=== PATIENT | female | born 1960 | race Caucasian/White ===

== ENCOUNTER → 2018-04-22 15:24 | Outpatient (CLI) | payer SELFPAY ==
--- NOTE | 2018-04-22 10:45 | ETH_PTH ---
PATIENT: CHAITANYA PANDYA LOC: [facility] U#:[id number] AGE/SX: 64/F ROOM: RE04/22/[address]: Dr. Dilshad Lubin MD : [id number] BED: DIS: SPEC #: [id number] RECD: 04/22/18 14:00 STATUS: ERAN CORNELL #: [id number] HEATHER: 04/22/18 10:[address]: Dilshad Lubin DEPT: SURGICAL PATHOLOGY RECD BY: Abena Suresh ENTERED: 04/22/18 16:08 SP TYPE: ETH TISS OTHR DR: KAL Tissues: A - Ethmoid sinus, NOS B - Ethmoid sinus, NOS Procedures: Decalcification bone/plaque Surgery Specimen Level IV HEADER OPERATION: Bilateral maxillary antrostomy with tissue removal and bilateral anterior ethmoidectomy PRE-OP DIAGNOSIS: Nasal cavity polyp, nasal congestion, chronic sinusitis TISSUE SUBMITTED: A - Left sinus contents, B - Right sinus contents MICROSCOPIC DIAGNOSIS A. Left sinus contents: Polypoid fragments of sinonasal mucosa with chronic inflammation and stomal edema, clinically chronic sinusitis. B. Right sinus contents: Polypoid fragments of sinonasal mucosa with chronic inflammation, increased plasma cells and stomal edema, clinically chronic sinusitis. CE:kareen 04/25/18 MICROSCOPIC DESCRIPTION Slides are reviewed. GROSS DESCRIPTION A - Received in fixative is one container labeled with the patient's name and designated left sinus contents. The specimen consists of multiple irregular fragments of freitas-pink soft tissue mixed with fragments of bone that in aggregate measure 3 x 2.5 x 0.3 cm. The entire specimen is submitted in one cassette after decalcification. B - Received in fixative is one container labeled with the patient's name and designated right sinus contents. The specimen consists of multiple irregular fragments of pink-red soft tissue mixed with fragments of bone that in aggregate measure 7.5 x 3 x 0.3 cm. The entire specimen is submitted in three cassettes after decalcification. / SJ:kareen 04/22/18 TC: 3 CPT: 12764 x2, 60980 x2
== END ==
PROVIDERS: Referring Provider Otolaryngology; Visit Provider Otolaryngology
DX: R09.81 Nasal congestion (principal); J33.0 Polyp of nasal cavity; J32.9 Chronic sinusitis, unspecified
CPT/HCPCS: 88305; 88311